=== PATIENT | female | born 1980 | race Caucasian/White ===

== ENCOUNTER → 2016-10-03 | Outpatient (CLI) | payer OTHER | LOC: KOH-I 15:31 | DX: M54.2 Cervicalgia (principal) | CPT/HCPCS: 72050 ==

== ENCOUNTER 2021-04-13 14:43 | Emergency (ER) | payer OTHER ==
[~2021-04-13] VITALS: Ht 154.9 cm; Wt 113.4 kg
[~2021-04-13 14:43] MED LIST: FLONASE 0.05% N16 GM; OMNICEF 300 MG300 MG PO; ZYRTEC10 MG PO
[2021-04-13 17:02] LABS: HEMOGLOBIN 14.3 gm/dl (12.3-15.3); RED BLOOD COUNT 5.03 M/UL (4.00-5.10); WHITE BLOOD COUNT 5.6 K/UL (4.5-11.0)
[2021-04-13 17:27] LABS: BUN/CREATININE RATIO 11 (0-10)
[2021-04-13] MEDS ORDERED: DELSYM30 MG/5 ML PO (17:38)
[2021-04-13] MEDS ORDERED: ZOFRAN4 MG PO (17:38)
== END 2021-04-13 21:05 | disposition home or self-care (01) ==
LOC: ER1 14:43
PROVIDERS: Physician Assistant Medical
DX: U07.1 COVID-19 (principal); Z23 Encounter for immunization; E86.0 Dehydration
CPT/HCPCS: 80053; 81001; 85025; 96374; 99284; M0243

== ENCOUNTER → 2021-05-24 | Outpatient (CLI) | payer OTHER ==
[~2021-05-24] MED LIST changes: +DELSYM30 MG/5 ML PO; +ZOFRAN4 MG PO
== END ==
LOC: HEART 5 09:30
DX: R00.2 Palpitations (principal); R42 Dizziness and giddiness; R06.02 Shortness of breath; I08.1 Rheumatic disorders of both mitral and tricuspid valves
CPT/HCPCS: 93306

== ENCOUNTER → 2021-06-13 | Outpatient (CLI) | payer OTHER | LOC: HEART 5 15:30 | DX: R00.2 Palpitations (principal) ==

== ENCOUNTER → 2021-08-24 | Outpatient (CLI) | payer OTHER | LOC: CATH 09:47 → EDSTATUS 10:00 → CATH 10:00 | DX: R42 Dizziness and giddiness (principal) ==